=== PATIENT | male | born 2000 | race Caucasian/White ===

== ENCOUNTER → 2022-04-15 | Outpatient (CLI) | payer BC, OTHER ==
[~2022-04-15] MED LIST: ACET120S; ALBU90OI INH; AMOX50SU; AZIT200SU PO; CODACEE120 PO; COUGH AND COLD; PRED15SY
== END | disposition home or self-care (01) ==
LOC: LAB SHORT 08:45
DX: J02.9 Acute pharyngitis, unspecified (principal); R59.0 Localized enlarged lymph nodes
CPT/HCPCS: 87081

== ENCOUNTER → 2022-05-24 | Outpatient (CLI) | payer BC, OTHER | END | disposition home or self-care (01) | LOC: LAB SHORT 08:42 → LAB 08:42 | DX: L03.319 Cellulitis of trunk, unspecified (principal) | CPT/HCPCS: 87070; 87075; 87205 ==

== ENCOUNTER → 2022-06-22 | Outpatient (CLI) | payer BC, OTHER | END | disposition home or self-care (01) | LOC: LAB SHORT 14:30 → LAB 14:30 | DX: L08.9 Local infection of the skin and subcutaneous tissue, unspecified (principal) | CPT/HCPCS: 87070; 87205 ==

== ENCOUNTER 2025-02-18 09:21 | Day surgery (SDC) | payer OTHER ==
[~2025-02-18] VITALS: Ht 185.4 cm; Wt 107.1 kg
[~2025-02-18 09:21] MED LIST changes: +EPINEPhrine HCl 1 MG/ML 1ML Amp ONE; +Lactated Ringer's 1,000 ML IV ONE; +Lidocaine 2%-Epineph 1:100000 20 ML MDV ONE
[2025-02-18] MEDS ORDERED: CeFAZolin Sodium 2,000 MG VIAL ONE (09:27)
[2025-02-18] MEDS ORDERED: Lactated Ringer's 1,000 ML IV ONE ×2 (10:01→11:50)
--- NOTE | 2025-02-18 10:02 | NUR ---
02/18/25 RAHEEM BARRETO MOTHER NOTIFIED OF E-SCRIPT LOCATION, CONFIRMED AGAINST DR CARIAS PRINTED LIST, PER MOM GABO REQUEST.
[2025-02-18] MEDS ORDERED: Midazolam HCl 1MG / ML 2ML Vial ONE (10:28)
[2025-02-18] MEDS ORDERED: FentaNYL Citrate 50 MCG/ML 2 ML Injection ONE ×2 (10:55→11:03)
[2025-02-18] MEDS ORDERED: propofoL 20 ML IV ONE ×2 (10:55→11:02)
[2025-02-18] MEDS ORDERED: Ondansetron HCl 2 MG / ML 2ML Vial ONE ×2 (11:00→11:01)
[2025-02-18] MEDS ORDERED: Dexamethasone Sod Phos 10 MG/ML 1ML VIAL ONE ×2 (11:00→11:01)
[2025-02-18] MEDS ORDERED: Ketorolac Tromethamine 30mg Vial ONE (11:01)
--- NOTE | 2025-02-18 11:17 | NUR ---
02/18/25 1117 Mellisa Drummond 1MG OF EPDDED TO FIRST BAG OF LR USED FOR JOINT IRRIGATION.
[2025-02-18 12:20] VITALS: BP 144/88
--- NOTE | 2025-02-18 12:21 | NUR ---
02/18/25 1221 Lizbeth Burk REPORT FROM [facility]. PT TRANSFERRED TO SDU, DROWSY BUT ORIENTED. VSS, ON RA. PT DENIES PAIN/NAUSEA. MOVEMENT & SENSATION TO L FOOT. NO VISIBLE SIGNS OF DISTRESS NOTED.
== END 2025-02-18 13:05 | disposition home or self-care (01) ==
LOC: ORSCSDS 09:21
PROVIDERS: Orthopaedic Surgery
PROC: 0SBD4ZZ Excision of Left Knee Joint, Percutaneous Endoscopic Approach (ICD-10-PCS; principal; 2025-02-18 10:45)
DX: S83.272A Complex tear of lateral meniscus, current injury, left knee, initial encounter (principal); V29.99XA Rider (driver) (passenger) of other motorcycle injured in unspecified traffic accident, initial encounter; Z87.891 Personal history of nicotine dependence
CPT/HCPCS: J0171; J0690; J1100; J1885; J2250; J2405; J2704; J3010; J7120

== ENCOUNTER 2025-09-01 16:56 | Emergency (ER) | payer OTHER, BC ==
[~2025-09-01] VITALS: Ht 185.4 cm; Wt 106.6 kg
[~2025-09-01 16:56] MED LIST changes: -EPINEPhrine HCl 1 MG/ML 1ML Amp ONE; -Lactated Ringer's 1,000 ML IV ONE; -Lidocaine 2%-Epineph 1:100000 20 ML MDV ONE
[2025-09-01 17:00] VITALS: BP 110/64
[2025-09-01] MEDS ORDERED: CEPH500 PO (18:07)
== END 2025-09-01 18:13 | disposition home or self-care (01) ==
LOC: ER 16:56
DX: S61.012A Laceration without foreign body of left thumb without damage to nail, initial encounter (principal); Z59.89 Other problems related to housing and economic circumstances; V86.56XA Driver of dirt bike or motor/cross bike injured in nontraffic accident, initial encounter
CPT/HCPCS: 12011; 99282-25; A9270